=== PATIENT | male | born 1945 | race Caucasian/White ===

== ENCOUNTER 2017-10-05 07:52 | Inpatient (IN) | payer OTHER, MEDICARE ==
[~2017-10-05] VITALS: Ht 170.2 cm; Wt 98.9 kg
[2017-10-05] VITALS (9 sets, daily range): BP systolic 109–135; BP diastolic 58–81; PULSE 55–77; RESP 14–20; TEMP 97–98.2; O2SAT 91–96
[2017-10-05] MEDS ORDERED: ONDANSETRON HCL 4 MG/2 ML VIAL IVP ONE (08:00)
[2017-10-05] MEDS ORDERED: LITH300C2 PO (08:09)
[2017-10-05] MEDS ORDERED: ASPI-516 CHEW (08:09)
[2017-10-05] MEDS ORDERED: TAMS0.4C4 PO (08:09)
[2017-10-05] MEDS ORDERED: METF500T PO (08:09)
[2017-10-05] MEDS ORDERED: PROZ20CA11 PO (08:09)
[2017-10-05] MEDS ORDERED: CARV25TA PO (08:09)
[2017-10-05] MEDS ORDERED: VERA120T3 PO (08:09)
[2017-10-05] MEDS: SODIUM CHLORIDE 0.9% FLUSH 10 ML FLUSH IVF PRN ×2 (08:21→20:51)
--- NOTE | 2017-10-05 09:00 | RADRPT ---
EXAM DATE/TIME: 10/05/2017 08:13 [facility] COMPARISON: No previous studies available for comparison. INDICATIONS : Syncope MEDICAL HISTORY : None. SURGICAL HISTORY : None. ENCOUNTER: Initial ACUITY: 1 day PAIN SCORE: 0/10 LOCATION: Bilateral chest FINDINGS: A single view of the chest demonstrates the lungs to be symmetrically aerated without evidence of mas s, infiltrate or effusion. The cardiomediastinal contours are unremarkable. Osseous structures are intact. CONCLUSION: Normal examination. Alfred Bynum MD on October 05, 2017 at 8:58 Board Certified Radiologist. This report was verified electronically.
--- NOTE | 2017-10-05 09:04 | RADRPT ---
EXAM DATE/TIME: 10/05/2017 08:35 [facility] COMPARISON: No previous studies available for comparison. INDICATIONS : Syncopal episode, dizziness. RADIATION DOSE: 69.15 CTDIvol (mGy) MEDICAL HISTORY : None SURGICAL HISTORY : None. ENCOUNTER: Initial ACUITY: 1 day PAIN SCALE: 1/10 LOCATION: cranial TECHNIQUE: Multiple contiguous axial images were obtained of the head. Using automated exposure control and adj ustment of the mA and/or kV according to patient size, radiation dose was kept as low as reasonably a chievable to obtain optimal diagnostic quality images. DICOM format image data is available electro nically for review and comparison. FINDINGS: CEREBRUM: The ventricles are normal for age. No evidence of midline shift, mass lesion, hemorrhage or acute in farction. No extra-axial fluid collections are seen. POSTERIOR FOSSA: The cerebellum and brainstem are intact. The 4th ventricle is midline. The cerebellopontine angle i s unremarkable. EXTRACRANIAL: The visualized portion of the orbits is intact. SKULL: The calvaria is intact. No evidence of skull fracture. CONCLUSION: Normal examination. Alfred Bynum MD on October 05, 2017 at 9:02 Board Certified Radiologist. This report was verified electronically.
[2017-10-05 09:28] LABS: BASOPHIL # 0.1 TH/MM3 (0-0.2); BASOPHIL % 0.9 % (0.0-2.0); EOSINOPHIL # 0.3 TH/MM3 (0-0.4); EOSINOPHIL % 2.9 % (0.0-4.0); HEMATOCRIT 44.2 % (39.0-51.0); HEMOGLOBIN 15.1 GM/DL (13.0-17.0); LYMPH % 33.6 % (9.0-44.0); LYMPHOCYTE # 3.8 TH/MM3 (1.0-4.8); MEAN CELL VOLUME 93.5 FL (80.0-100.0); MEAN CORPUSCULAR HEMOGLOBIN 31.9 PG (27.0-34.0); MEAN CORPUSCULAR HGB CONC 34.1 % (32.0-36.0); MEAN PLATELET VOLUME 8.2 FL (7.0-11.0); MONO % 10.3 % (0.0-8.0); MONOCYTE # 1.2 TH/MM3 (0-0.9); NEUT % 52.3 % (16.0-70.0); PLATELET COUNT 356 TH/MM3 (150-450); RED BLOOD COUNT 4.73 MIL/MM3 (4.50-5.90); RED CELL DISTRIBUTION WIDTH 13.8 % (11.6-17.2); WHITE BLOOD COUNT 11.4 TH/MM3 (4.0-11.0)
[2017-10-05 09:38] LABS: INTERNATIONAL NORMALIZED RATIO 1.1 RATIO; PROTHROMBIN TIME - PATIENT 10.7 SEC (9.8-11.6)
[2017-10-05 09:47] LABS: ALBUMIN 3.2 GM/DL (3.4-5.0); ALT (GPT) 46 U/L (12-78); AST (GOT) 38 U/L (15-37); BICARBONATE 24.4 MEQ/L (21.0-32.0); BLOOD UREA NITROGEN 19 MG/DL (7-18); CALCIUM 9.5 MG/DL (8.5-10.1); CHLORIDE 106 MEQ/L (98-107); CREATININE 1.51 MG/DL (0.60-1.30); GLOMERULAR FILTRATION RATE 46 ML/MIN (>89); GLUCOSE,RANDOM 218 MG/DL (74-106); MAGNESIUM 2.1 MG/DL (1.5-2.5); SODIUM (NA) 140 MEQ/L (136-145)
[2017-10-05 09:51] LABS: ALKALINE PHOSPHATASE 82 U/L (45-117); TOTAL BILIRUBIN ADULT 0.7 MG/DL (0.2-1.0); TOTAL PROTEIN 7.7 GM/DL (6.4-8.2); TROPONIN I 0.03 NG/ML (0.02-0.05)
--- NOTE | 2017-10-05 10:09 | PD ---
HPI Chief Complaint: Syncope/Near-Syncope Time Seen by Provider: 07:58 Travel History International Travel<30 days: No Contact w/Intl Traveler<30days: No Traveled to known affect area: No History of Present Illness HPI 72-year-old male arrives by EMS. He was reported to have fallen to the ground at about 7 this morning. He was unresponsive in his daughter who is an PROCESS ANALYST initiated CPR. The patient promptly woke up thereafter. EMS arrived on scene to a patient who was awaken alert with one run of bradycardia to the 30s. The patient takes Coreg and Cardizem. He reports this morning he woke up at 4 AM and took his carvedilol. He states he does so in order to eat breakfast. The patient states he actually remembers his daughter performing chest compressions. In the ER he denies chest pain and shortness of breath. No nausea or vomiting. He denies any change in his baseline state of health over the past few days. [facility] Social History Tobacco Use: No Allergies-Medications (Allergen,Severity, Reaction): Coded Allergies: codeine (Verified Allergy, Intermediate, 10/05/17) Reported Meds & Prescriptions Reported Meds & Active Scripts Active Reported Tamsulosin (Tamsulosin HCl) 0.4 Mg Cap 0.4 Mg PO HS Prozac (Fluoxetine HCl) 20 Mg Cap 20 Mg PO DAILY [place] Carbonate 300 Mg Cap 300 Mg PO BID Verapamil (Verapamil HCl) 120 Mg Tab 120 Mg PO DAILY Carvedilol 25 Mg Tab 25 Mg PO DAILY Metformin (Metformin HCl) 500 Mg Tab 500 Mg PO BIDPC Aspirin 81 Mg Chew 81 Mg CHEW DAILY Review of Systems Except as stated in HPI: all other systems reviewed are Neg General / Constitutional: No: Fever Physical Exam Narrative GENERAL: 72-year-old male well-nourished well-developed SKIN: Warm and dry. HEAD: Atraumatic. Normocephalic. EYES: Pupils equal and round. No scleral icterus. No injection or drainage. ENT: No nasal bleeding or discharge. Mucous membranes pink and moist. NECK: Trachea midline. No JVD. CARDIOVASCULAR: Heart rate is about 50-60. The rhythm is regular. RESPIRATORY: No accessory muscle use. Clear to auscultation. Breath sounds equal bilaterally. GASTROINTESTINAL: Soft. No focus of tenderness. No distention. MUSCULOSKELETAL: Extremities without clubbing, cyanosis, or edema. No obvious deformities. NEUROLOGICAL: Awake and alert. No obvious cranial nerve deficits. Motor grossly within normal limits. Five out of 5 muscle strength in the arms and legs. Normal speech. PSYCHIATRIC: Appropriate mood and affect; insight and judgment normal. Data Data Last Documented VS Vital Signs Date Time Temp Pulse Resp B/P (MAP) Pulse Ox O2 Delivery O2 Flow Rate FiO2 10/05/17 08:02 14 95 Nasal Cannula 3.00 10/05/17 07:56 55 116/72 (87) Vital Signs Date Time Temp Pulse Resp B/P (MAP) Pulse Ox O2 Delivery O2 Flow Rate FiO2 10/05/17 08:02 14 95 Nasal Cannula 3.00 10/05/17 07:56 55 14 116/72 (87) 96 Orders Orders Electrocardiogram (10/05/17 07:58) Complete Blood Count With Diff (10/05/17 07:58) Comprehensive Metabolic Panel (10/05/17 07:58) Magnesium (Mg) (10/05/17 07:58) Ckmb (Isoenzyme) Profile (10/05/17 07:58) Troponin I (10/05/17 07:58) Act Partial Throm Time (Ptt) (10/05/17 07:58) Prothrombin Time / Inr (Pt) (10/05/17 07:58) Urinalysis - C+S If Indicated (10/05/17 07:58) Chest, Single Ap (10/05/17 07:58) Ct Brain W/O Iv Contrast(Rout) (10/05/17 07:58) Blood Glucose (10/05/17 07:58) Ecg Monitoring (10/05/17 07:58) Iv Access Insert/Monitor (10/05/17 07:58) Oximetry (10/05/17 07:58) Ondansetron Inj (Zofran Inj) (10/05/17 08:00) Sodium Chloride 0.9% Flush (Ns Flush) (10/05/17 08:00) CKMB (10/05/17 08:00) CKMB% (10/05/17 08:00) Vital Signs (Adult) RHETT.Q4H (10/05/17 10:23) Blood Glucose Goal (Criteria) (10/05/17 10:23) Hypoglycemia 70 Mg/Dl Or < (10/05/17 10:23) Notify Dr: Other (10/05/17 10:23) Dextrose 50% In [place] (Vial) Inj (D50w (Vi (10/05/17 10:30) Glucagon Inj (Glucagon Inj) (10/05/17 10:30) Insulin Aspart Supplemtl Scale (Novolog (10/05/17 12:00) Spinning Machine Tender / Telemetry RHETT.Q8H (10/05/17 10:23) Orthostatic Blood Pressure (10/05/17 10:23) Basic Metabolic Panel (Bmp) (10/06/17 06:00) Admit Order (Ed Use Only) (10/05/17 ) Spinning Machine Tender / Telemetry RHETT.Q8H (10/05/17 10:26) Vital Signs (Adult) Q4H (10/05/17 10:26) Diet Npo (10/05/17 Lunch) Activity Bed Rest (10/05/17 10:26) Labs Laboratory Tests Test 10/05/17 08:00 White Blood Count 11.4 TH/MM3 Red Blood Count 4.73 MIL/MM3 Hemoglobin 15.1 GM/DL Hematocrit 44.2 % Mean Corpuscular Volume 93.5 FL Mean Corpuscular Hemoglobin 31.9 PG Mean Corpuscular Hemoglobin Concent 34.1 % Red Cell Distribution Width 13.8 % Platelet Count 356 TH/MM3 Mean Platelet Volume 8.2 FL Neutrophils (%) (Auto) 52.3 % Lymphocytes (%) (Auto) 33.6 % Monocytes (%) (Auto) 10.3 % Eosinophils (%) (Auto) 2.9 % Basophils (%) (Auto) 0.9 % Neutrophils # (Auto) 6.0 TH/MM3 Lymphocytes # (Auto) 3.8 TH/MM3 Monocytes # (Auto) 1.2 TH/MM3 Eosinophils # (Auto) 0.3 TH/MM3 Basophils # (Auto) 0.1 TH/MM3 CBC Comment DIFF FINAL Differential Comment Prothrombin Time 10.7 SEC Prothromb Time International Ratio 1.1 RATIO Activated Partial Thromboplast Time 25.2 SEC Blood Urea Nitrogen 19 MG/DL Creatinine 1.51 MG/DL Random Glucose 218 MG/DL Total Protein 7.7 GM/DL Albumin 3.2 GM/DL Calcium Level 9.5 MG/DL Magnesium Level 2.1 MG/DL Alkaline Phosphatase 82 U/L Aspartate Amino Transf (AST/SGOT) 38 U/L Alanine Aminotransferase (ALT/SGPT) 46 U/L Total Bilirubin 0.7 MG/DL Sodium Level 140 MEQ/L Potassium Level 4.1 MEQ/L Chloride Level 106 MEQ/L Carbon Dioxide Level 24.4 MEQ/L Anion Gap 10 MEQ/L Estimat Glomerular Filtration Rate 46 ML/MIN Total Creatine Kinase 112 U/L Creatine Kinase MB 0.8 NG/ML Troponin I 0.03 NG/ML MDM Medical Decision Making Medical Screen Exam Complete: Yes Emergency Medical Condition: Yes Differential Diagnosis CBC & BMP Diagram 10/05/17 08:00 Total Protein 7.7, Albumin 3.2 L, Calcium Level 9.5, Magnesium Level 2.1, Alkaline Phosphatase 82, Aspartate Amino Transf (AST/SGOT) 38 H, Alanine Aminotransferase (ALT/SGPT) 46, Total Bilirubin 0.7 Tn 0.03 Albumin 3.2 EKG: sinus, rate 57,LBBB pattern (old) Last Impressions Head CT 10/05/17 075 Signed Impressions: Service Date/Time: September 08:35 - CONCLUSION: Normal examination. Alfred Bynum MD Chest X-Ray 10/05/17 0758 Signed Impressions: Service Date/Time: September 08:13 - CONCLUSION: Normal examination. Alfred Bynum MD Patient had a syncope episode apparently with unconsciousness for long enough for his daughter who is an PROCESS ANALYST to do CPR. EMS reports on scene the heart rate was in the 30s. He has normalized here and at the time of reassessment just prior to admission, 11:05 AM the patient reports feeling "fine." Heart rate is about 80 and the blood pressure was 140/70. There is concern that potentially the Coreg with or without the diltiazem is causing the bradycardia. Case d/w Dr Brown Narrative Course Please see above DDX includes pharmacy, metabolic disarray, anemia, intracranial hemorrhage Diagnosis Primary Impression: Syncope and collapse Additional Impression: Bradycardia Admitting Information Admitting Physician Requests: Observation Urbano Hickey MD Oct 05, 2017 10:09
[2017-10-05] MEDS ORDERED: DEXTROSE 50% IN WATER 50 ML VIAL(D50) IV PUSH PRN (10:30)
[2017-10-05] MEDS ORDERED: GLUCAGON 1 MG/ML VIAL OTHER PRN (10:30)
[2017-10-05 11:44] LABS: BACTERIA, URINE FEW /hpf; BLOOD, URINE SMALL (NEG); CALCIUM OXALATE CRYSTALS,URINE OCC /hpf; GLUCOSE,URINE TRACE mg/dL (NEG); HYALINE CAST, URINE 32 /lpf (RARE); KETONE, URINE NEG (NEG); MUCUS URINE MANY /lpf (OCC); NITRITE,URINE NEG (NEG); PH, URINE 5.5 (5.0-8.5); SQUAMOUS EPITHELIAL CELL URINE <1 /hpf (0-5); URINE COLOR YELLOW (YELLW/STRAW); URINE LEUKOCYTE ESTERASE SMALL (NEG)
[2017-10-05 11:47] LABS: BILIRUBIN, URINE NEG (NEG)
[2017-10-05] MEDS: INSULIN ASPART SUPPLEMENTAL SCALE SQ SCH ×3 (12:20→20:53)
--- NOTE | 2017-10-05 13:11 | HHI.HP ---
[facility] Service [facility] Primary Care Physician Ricco Garza MD Admission Diagnosis Syncope; Bradycardia; Fall Diagnoses: (1) Syncope Diagnosis: Principal Chief Complaint: lightheadedness Travel History International Travel<30 Days: No Contact w/Intl Traveler <30 Da: No Traveled to Known Affected Are: No History of Present Illness patient is a 72 y/o male with history of hypertension, diabetes, BPH,asthma who was brought to ER after he passed out at home earlier today. he says that he felt lightheaded before he passed out. he denies any chest pain, sob, nausea or emesis before the incident. there's no report of tongue-biting, focal weakness, headache or urinary incontinence. per the ER , his pulse was reported @ 30's at the time. he's on Verapamil and Coreg for hypertension. at the time of my evaluation he was resting comfortably with no acute distress, with no reported pain. Review of Systems Constitutional: DENIES: Fever, Weight loss, Chills, Night Sweats Eyes: DENIES: Blurred vision, Diplopia, Vision loss, Double Vision Ears, nose, mouth, throat: DENIES: Tinnitus, Vertigo, Throat pain, Epistaxis Respiratory: DENIES: Apneas, Cough, Snoring, Wheezing, Hemoptysis, Sputum production, Shortness of breath Cardiovascular: DENIES: Chest pain, Palpitations, Syncope, Dyspnea on Exertion , PND, Lower Extremity Edema, Orthopnea, Claudication Gastrointestinal: DENIES: Abdominal pain, Black stools, Bloody stools, Constipation, Diarrhea, Nausea, Vomiting, Difficulty Swallowing, Anorexia Genitourinary: DENIES: Urinary frequency, Urgency, Hematuria, Dysuria Musculoskeletal: DENIES: Joint pain, Muscle aches, Stiffness, Joint Swelling Integumentary: DENIES: Rash Neurologic: DENIES: Abnormal gait, Headache, Localized weakness, Paresthesias, Seizures, Speech Problems, Tremor, Poor Balance Psychiatric: DENIES: Anxiety, Confusion, Mood changes, Depression, Hallucinations, Agitation, Suicidal Ideation, Homicidal Ideation, Delusions Past Family Social History Past Medical History hypertension diabetes mellitus asthma BPH Past Surgical History hand surgery. Reported Medications Tamsulosin (Tamsulosin HCl) 0.4 Mg Cap 0.4 Mg PO HS Prozac (Fluoxetine HCl) 20 Mg Cap 20 Mg PO DAILY [place] Carbonate 300 Mg Cap 300 Mg PO BID Verapamil (Verapamil HCl) 120 Mg Tab 120 Mg PO DAILY Carvedilol 25 Mg Tab 25 Mg PO DAILY Metformin (Metformin HCl) 500 Mg Tab 500 Mg PO BIDPC Aspirin 81 Mg Chew 81 Mg CHEW DAILY Allergies: Coded Allergies: codeine (Verified Allergy, Intermediate, 10/05/17) Active Ordered Medications Inpatient Medications Dextrose (D50w (Vial) Inj) 50 ml UNSCH PRN IV PUSH HYPOGLYCEMIA-SEE COMMENTS; Start 10/05/17 at 10:30 Glucagon (Glucagon Inj) 1 mg UNSCH PRN OTHER HYPOGLYCEMIA-SEE COMMENTS; Start 10/05/17 at 10:30 Insulin Aspart (NovoLOG SUPPLEMENTAL SCALE) 1 ACHS SLIDING SCALE SQ ; Start at 12:00 Ondansetron HCl (Zofran Inj) 4 mg ONCE ONCE IVP Last administered on at 08:21; Start 10/05/17 at 08:00; Stop 10/05/17 at 08:02; Status DC Sodium Chloride (NS Flush) 2 ml UNSCH PRN IVF FLUSH AFTER USING IV ACCESS Last administered on 10/05/17at 08:21; Start 10/05/17 at 08:00 Family History not significant. Social History quit smoking many years ago- doesn't drink. Physical Exam Vital Signs Vital Signs Date Time Temp Pulse Resp B/P (MAP) Pulse Ox O2 Delivery O2 Flow Rate FiO2 10/05/17 11:05 97.6 10/05/17 08:02 14 95 Nasal Cannula 3.00 10/05/17 07:56 55 14 116/72 (87) 96 Physical Exam GENERAL: This is a well-nourished, well-developed patient, in no apparent distress. SKIN: No rashes, ecchymoses or lesions. Cool and dry. HEAD: Atraumatic. Normocephalic. No temporal or scalp tenderness. EYES: Pupils equal round and reactive. Extraocular motions intact. No scleral icterus. No injection or drainage. ENT: Nose without bleeding, purulent drainage or septal hematoma. Throat without erythema, tonsillar hypertrophy or exudate. Uvula midline. Airway patent. NECK: Trachea midline. No JVD or lymphadenopathy. Supple, nontender, no meningeal signs. CARDIOVASCULAR: Regular rate and rhythm without murmurs, gallops, or rubs. RESPIRATORY: Clear to auscultation. Breath sounds equal bilaterally. No wheezes , rales, or rhonchi. GASTROINTESTINAL: Abdomen soft, non-tender, nondistended. No hepato-splenomegaly , or palpable masses. No guarding. MUSCULOSKELETAL: Extremities without clubbing, cyanosis, or edema. No joint tenderness, effusion, or edema noted. No calf tenderness. Negative Homans sign bilaterally. NEUROLOGICAL: Awake and alert. Cranial nerves II through XII intact. Motor and sensory grossly within normal limits. Five out of 5 muscle strength in all muscle groups. Normal speech. Laboratory Laboratory Tests Test 10/05/17 08:00 10/05/17 11:20 White Blood Count 11.4 Red Blood Count 4.73 Hemoglobin 15.1 Hematocrit 44.2 Mean Corpuscular Volume 93.5 Mean Corpuscular Hemoglobin 31.9 Mean Corpuscular Hemoglobin Concent 34.1 Red Cell Distribution Width 13.8 Platelet Count 356 Mean Platelet Volume 8.2 Neutrophils (%) (Auto) 52.3 Lymphocytes (%) (Auto) 33.6 Monocytes (%) (Auto) 10.3 Eosinophils (%) (Auto) 2.9 Basophils (%) (Auto) 0.9 Neutrophils # (Auto) 6.0 Lymphocytes # (Auto) 3.8 Monocytes # (Auto) 1.2 Eosinophils # (Auto) 0.3 Basophils # (Auto) 0.1 CBC Comment DIFF FINAL Differential Comment Prothrombin Time 10.7 Prothromb Time International Ratio 1.1 Activated Partial Thromboplast Time 25.2 Blood Urea Nitrogen 19 Creatinine 1.51 Random Glucose 218 Total Protein 7.7 Albumin 3.2 Calcium Level 9.5 Magnesium Level 2.1 Alkaline Phosphatase 82 Aspartate Amino Transf (AST/SGOT) 38 Alanine Aminotransferase (ALT/SGPT) 46 Total Bilirubin 0.7 Sodium Level 140 Potassium Level 4.1 Chloride Level 106 Carbon Dioxide Level 24.4 Anion Gap 10 Estimat Glomerular Filtration Rate 46 Total Creatine Kinase 112 Creatine Kinase MB 0.8 Troponin I 0.03 Urine Color YELLOW Urine Turbidity HAZY Urine pH 5.5 Urine Specific [place] 1.034 Urine Protein 100 Urine Glucose (UA) TRACE Urine Ketones NEG Urine Occult Blood SMALL Urine Nitrite NEG Urine Bilirubin NEG Urine Urobilinogen 2.0 Urine Leukocyte Esterase SMALL Urine RBC 13 Urine WBC 14 Urine Squamous Epithelial Cells <1 Urine Calcium Oxalate Crystals OCC Urine Bacteria FEW Urine Hyaline Casts 32 Urine Mucus MANY Microscopic Urinalysis Comment CULTURE INDICATED Date/Time Source Procedure Growth Status 10/05/17 11:20 Urine Clean Catch Urine Culture Pending Received Result Diagram: 10/05/17 0800 10/05/17 0800 Imaging Last Impressions Head CT 10/05/17757 Signed Impressions: Service Date/Time: September 08:35 - CONCLUSION: Normal examination. Alfred Bynum MD Chest X-Ray 10/05/17757 Signed Impressions: Service Date/Time: September 08:13 - CONCLUSION: Normal examination. Alfred Bynum MD EKG; sinus bradycardia with LBBB( old) Capadrian VTE Risk Assessment Caprini VTE Risk Assessment: Mod/High Risk (score >= 2) Caprini Risk Assessment Model Point Value = 1 Point Value = 2 Point Value = 3 Point Value = 5 Age 41-60 Minor surgery BMI > 25 kg/m2 Swollen legs Varicose veins or History of unexplained or recurrent spontaneous Oral contraceptives or hormone replacement Sepsis (< 1 month) Serious lung disease, including pneumonia (< 1 month) Abnormal pulmonary function Acute myocardial infarction Congestive heart failure (< 1 month) History of inflammatory bowel disease Medical patient at bed rest Age 61-74 Arthroscopic surgery Major open surgery (> 45 min) Laparoscopic surgery (> 45 min) Malignancy Confined to bed (> 72 hours) Immobilizing plaster cast Central venous access Age >= 75 History of VTE Family history of VTE Factor V Leiden Prothrombin [id number] Lupus anticoagulant Anticardiolipin antibodies Elevated serum homocysteine Heparin-induced thrombocytopenia Other congenital or acquired thrombophilia Stroke (< 1 month) Elective arthroplasty Hip, pelvis, or leg fracture Acute spinal cord injury (< 1 month) Prophylaxis Regimen Total Risk Factor Score Risk Level Prophylaxis Regimen 0-1 Low Early ambulation 2 Moderate Order ONE of the following: *Sequential Compression Device (SCD) *Heparin 5000 units SQ BID 3-4 Higher Order ONE of the following medications: *Heparin 5000 units SQ TID *Enoxaparin/Lovenox 40 mg SQ daily (WT < 150 kg, CrCl > 30 mL/min) *Enoxaparin/Lovenox 30 mg SQ daily (WT < 150 kg, CrCl > 10-29 mL/min) *Enoxaparin/Lovenox 30 mg SQ BID (WT < 150 kg, CrCl > 30 mL/min) AND/OR *Sequential Compression Device (SCD) 5 or more Highest Order ONE of the following medications: *Heparin 5000 units SQ TID (Preferred with Epidurals) *Enoxaparin/Lovenox 40 mg SQ daily (WT < 150 kg, CrCl > 30 mL/min) *Enoxaparin/Lovenox 30 mg SQ daily (WT < 150 kg, CrCl > 10-29 mL/min) *Enoxaparin/Lovenox 30 mg SQ BID (WT < 150 kg, CrCl > 30 mL/min) AND *Sequential Compression Device (SCD) Assessment and Plan Assessment and Plan A/P - syncope with reported bradycardia continue to monitor on telemetry- hold Verapamil and Coreg- check echo and carotid doppler. -hypertension- check orthostatic BP- hold home meds as noted above- vasotec prn. -diabetes mellitus; accu-check with SSI -chronic renal insufficiency; seems to be at his baseline- will monitor -DVT prophylaxis with subq Lovenox -consult PT. Discussed Condition With patient and his daughter. ER physician. Problem Qualifiers (1) Syncope: Qualified Codes: R55 - Syncope and collapse Breanna Brown MD Oct 05, 2017 13:11
[2017-10-05] MEDS ORDERED: SODIUM CHLORID 0.9% 500 ML INJ 500 ML IV ONE (14:00)
--- NOTE | 2017-10-05 15:12 | RADRPT ---
EXAM DATE/TIME: 10/05/2017 14:36 [facility] COMPARISON: No previous studies available for comparison. INDICATIONS : Syncope. MEDICAL HISTORY : Benign prostatic hyperplasia, (BPH) Hypertension. Dilopia. Blurred vision. Tinnitis. Diabetes. SURGICAL HISTORY : None. ENCOUNTER: Initial ACUITY: 1 day PAIN SCORE: 0/10 LOCATION: Bilateral neck PEAK SYSTOLIC VELOCITIES (cm/sec): ICA/CCA RATIO: Right: 0.9 Left: 0.9 ICA: Right: 73.6 Left: 68.3 CCA: Right: 84.0 Left: 74.9 ECA: Right: 89.2 Left: 45.3 VERTEBRAL: Right: 43.5 antegrade Left: 56.3 antegrade Elevated flow velocities and ICA/CCA ratios have been found to correlate with increased degrees of vessel stenosis, calculated as percentage of diameter relative to a normal segment of distal ICA/CCA FINDINGS: RIGHT CAROTID: There is moderate calcified and noncalcified plaque within the mid common carotid artery and in the c arotid bulb and proximal internal cord artery. The waveforms are within normal limits. LEFT CAROTID: There is a mild to moderate calcified and noncalcified plaque in the mid to distal common carotid art crys and carotid bulb. The waveforms are within normal limits. VERTEBRAL ARTERIES: Antegrade flow is seen in both vertebral arteries. MISCELLANEOUS: None. CONCLUSION: 1. Mild to moderate atherosclerotic disease within the common carotid arteries and internal carotid a rteries bilaterally. However, velocity measurements indicate less than 50% stenosis. 2. There is antegrade flow within both vertebral arteries. Ricco Gee MD on October 05, 2017 at 15:00 Board Certified Radiologist. This report was verified electronically.
[2017-10-05] MEDS: LITHIUM CARBONATE 300 MG CAP PO SCH (21:00)
[2017-10-05] MEDS ORDERED: TAMSULOSIN HCL 0.4 MG CAP PO SCH (21:00)
--- NOTE | 2017-10-05 21:53 | EKG ---
Date Performed: 10/05/2017 Time Performed: 07:56:48 PTAGE: 72 years EKG: SINUS BRADYCARDIA WITH FIRST DEGREE AV BLOCK MARKED LEFT AXIS DEVIATION LEFT BUNDLE BRANCH BLOCK ABNORMAL ECG NO PREVIOUS TRACING DOCTOR: Anthony Back Interpretating Date/Time 10/05/2017 21:52:03
[2017-10-06] VITALS (8 sets, daily range): BP systolic 115–157; BP diastolic 66–77; PULSE 68–92; RESP 18–20; TEMP 97.5–97.8; O2SAT 90–93
--- NOTE | 2017-10-06 08:58 | HHI.PR ---
Subjective Remarks in no acute distress. no chest pain or sob. no dizziness today. Objective Vitals Vital Signs Date Time Temp Pulse Resp B/P (MAP) Pulse Ox O2 Delivery O2 Flow Rate FiO2 10/06/17 04:12 97.5 76 18 115/77 (90) 91 10/06/17 04:00 88 10/06/17 00:00 71 10/05/17 23:42 97.8 71 18 109/58 (75) 91 10/05/17 22:22 97.0 77 18 135/78 (97) 92 10/05/17 21:22 97.6 76 18 127/80 (96) 92 10/05/17 20:22 97.1 76 18 131/69 (89) 91 10/05/17 19:22 98.2 74 18 133/81 (98) 92 10/05/17 17:00 97.8 70 20 133/69 (90) 94 10/05/17 11:05 97.6 I/O 10/05/17 10/05/17 10/05/17 10/06/17 10/06/17 10/06/17 07:00 15:00 23:00 07:00 15:00 23:00 Intake Total 0 ml Output Total 0 ml Balance 0 ml Intake Oral 0 ml Output Urine Total 0 ml # Voids 3 # Bowel Movements 1 Result Diagram: 10/05/17 0800 10/05/17 0800 Imaging Last Impressions Head CT 10/05/17 0758 Signed Impressions: Service Date/Time: September 08:35 - CONCLUSION: Normal examination. Alfred Bynum MD Chest X-Ray 10/05/17 0758 Signed Impressions: Service Date/Time: September 08:13 - CONCLUSION: Normal examination. Alfred Bynum MD Carotid Artery Ultrasound 10/05/17 0000 Signed Impressions: Service Date/Time: September 14:36 - CONCLUSION: 1. Mild to moderate atherosclerotic disease within the common carotid arteries and internal carotid arteries bilaterally. However, velocity measurements indicate less than 50%% stenosis. 2. There is antegrade flow within both vertebral arteries. Ricco Gee MD Objective Remarks GENERAL: This is a well-nourished, well-developed patient, in no apparent distress. CARDIOVASCULAR: Regular rate and regular rhythm without murmurs, gallops, or rubs. RESPIRATORY: Clear to auscultation. Breath sounds equal bilaterally. No wheezes , rales, or rhonchi. GASTROINTESTINAL: Abdomen soft, non-tender, nondistended. Normal, active bowel sounds MUSCULOSKELETAL: Extremities without clubbing, cyanosis, or edema. NEURO: Alert & Oriented x4 to person, place, time, situation. Moves all ext x4 Medications and IVs Inpatient Medications Aspirin (Aspirin Chew) 81 mg DAILY CHEW ; Start 10/06/17 at 09:00 Dextrose (D50w (Vial) Inj) 50 ml UNSCH PRN IV PUSH HYPOGLYCEMIA-SEE COMMENTS; Start 10/05/17 at 10:30 Fluoxetine HCl (PROzac) 20 mg DAILY PO ; Start 10/06/17 at 09:00 Glucagon (Glucagon Inj) 1 mg UNSCH PRN OTHER HYPOGLYCEMIA-SEE COMMENTS; Start 10/05/17 at 10:30 Insulin Aspart (NovoLOG SUPPLEMENTAL SCALE) 1 ACHS SLIDING SCALE SQ Last administered on 10/05/17at 17:00; Start 10/05/17 at 12:00 [place] Carbonate ([place] Carbonate) 300 mg BID PO ; Start 10/05/17 at 21:00 Ondansetron HCl (Zofran Inj) 4 mg ONCE ONCE IVP Last administered on at 08:21; Start 10/05/17 at 08:00; Stop 10/05/17 at 08:02; Status DC Pneumococcal Polyvalent Vaccine (Pneumovax-23 Inj) 25 mcg ONCE ONCE IM ; Start 10/06/17 at 10:00; Stop 10/06/17 at 10:01 Sodium Chloride 500 ml @ 50 mls/hr Q10H ONCE IV Last administered on at 14:00; Start 10/05/17 at 14:00; Stop 10/05/17 at 23:59; Status DC Sodium Chloride (NS Flush) 2 ml UNSCH PRN IVF FLUSH AFTER USING IV ACCESS Last administered on 10/05/17at 20:51; Start 10/05/17 at 08:00 Tamsulosin HCl (Flomax) 0.4 mg HS PO Last administered on 10/05/17at 20:51; Start 10/05/17 at 21:00 A/P Problem List: (1) Syncope ICD Code: R55 - Syncope and collapse Assessment and Plan - syncope with reported bradycardia CT head with no acute abnormality- carotid doppler with less than 50% stenosis - echo is pending. remained on sinus rhythm on telemetry-- hold Verapamil - start on coreg at a lower dose upon discharge. -hypertension- check orthostatic BP- hold home meds as noted above- vasotec prn. -diabetes mellitus; accu-check with SSI -chronic renal insufficiency; seems to be at his baseline- will monitor -DVT prophylaxis with subq Lovenox -PT consulted. Discharge Planning dc home later today when echo is done. Problem Qualifiers (1) Syncope: Qualified Codes: R55 - Syncope and collapse Breanna Brown MD Oct 06, 2017 08:58
[2017-10-06] MEDS ORDERED: FLUoxetine HCL 20 MG CAP PO SCH (09:00)
[2017-10-06] MEDS ORDERED: ASPIRIN 81 MG CHEW TAB CHEW SCH (09:00)
[2017-10-06] MEDS ORDERED: CARV3.125 PO (09:01)
[2017-10-06] MEDS ORDERED: PNEUMOCOCCAL POLYVALENT INJ 25 MCG/0.5 ML SYR IM ONE (10:00)
[2017-10-06 10:06] LABS: BICARBONATE 26.2 MEQ/L (21.0-32.0); CALCIUM 9.5 MG/DL (8.5-10.1); CREATININE 1.47 MG/DL (0.60-1.30)
[2017-10-06] MEDS: LITHIUM CARBONATE 300 MG CAP PO SCH (10:30)
[2017-10-06] MEDS: INSULIN ASPART SUPPLEMENTAL SCALE SQ SCH (11:28)
--- NOTE | 2017-10-06 16:46 | HHI.PR ---
Addendum To [facility] Progress Not Reason for addendum: Additonal documentation (the patient wants to go home and have a f/u on his echo as outpatient. patient will be discharged home with f/u by his pcp.) Breanna Brown MD Oct 06, 2017 16:46
--- NOTE | 2017-10-06 19:54 | ECHRPT ---
Indication: SOB CONCLUSIONS Normal left ventricular size. Mild concentric left ventricular hypertrophy. The left ventricular systolic function is normal with an estimated ejection fraction in the range of 55-60%. No definite regional wall motion abnormalities. Trace aortic valve regurgitation. BP: 116 / 72 HR: 55 Rhythm: Other MEASUREMENTS (Male / Female) Normal Values Technical Quality:Good 2D ECHO LV Diastolic Diameter PLAX 4.8 cm 4.2 - 5.9 / 3.9 - 5.3 cm LV Systolic Diameter PLAX 3.9 cm IVS Diastolic Thickness 1.4 cm 0.6 - 1.0 / 0.6 - 0.9 cm LVPW Diastolic Thickness 1.1 cm 0.6 - 1.0 / 0.6 - 0.9 cm LV Relative Wall Thickness 0.5 LA Systolic Diameter LX 4.1 cm 3.0 - 4.0 / 2.7 - 3.8 cm DOPPLER Mitral E Point Velocity 85.9 cm/s Mitral A Point Velocity 117.0 cm/s Mitral E to A Ratio 0.7 TR Peak Velocity 233.0 cm/s TR Peak Gradient 21.7 mmHg Right Atrial Pressure 10.0 mmHg Pulmonary Artery Systolic Pressu 31.7 mmHg Right Ventricular Systolic Press 31.7 mmHg FINDINGS LEFT VENTRICLE Normal left ventricular size. Mild concentric left ventricular hypertrophy. The left ventricular systolic function is normal with an estimated ejection fraction in the range of 55-60%. No definite regional wall motion abnormalities. RIGHT VENTRICLE Normal right ventricular size and systolic function. LEFT ATRIUM The left atrial size is normal. RIGHT ATRIUM The right atrial size is normal. ATRIAL SEPTUM Normal atrial septal thickness without atrial level shunting by limited color doppler interrogation. AORTA The aortic root and proximal ascending aorta are normal in size on limited imaging. MITRAL VALVE Structurally normal mitral valve. No mitral valve stenosis or regurgitation. AORTIC VALVE Trace aortic valve regurgitation. TRICUSPID VALVE Structurally normal tricuspid valve. No tricuspid valve stenosis or regurgitation. PULMONARY VALVE No pulmonary valve regurgitation or stenosis. VESSELS The inferior vena cava is normal in size. PERICARDIUM No pericardial effusion. Vipul Haskins MD (Electronically Signed) Final Date:06 October 2017 19:53
== END 2017-10-06 18:08 | disposition home or self-care (01) | DRG 312 ==
LOC: NEPC 07:52 → NEDA 10:31 → N04B 16:55
PROVIDERS: ADMIT Internal Medicine; ATTEND Internal Medicine
DX: R55 Syncope and collapse (principal); E11.22 Type 2 diabetes mellitus with diabetic chronic kidney disease; R00.1 Bradycardia, unspecified; N40.0 Benign prostatic hyperplasia without lower urinary tract symptoms; J45.909 Unspecified asthma, uncomplicated; Z23 Encounter for immunization; I12.9 Hypertensive chronic kidney disease with stage 1 through stage 4 chronic kidney disease, or unspecified chronic kidney disease; N18.9 Chronic kidney disease, unspecified; Z79.84 Long term (current) use of oral hypoglycemic drugs
CPT/HCPCS: 70450; 71045; 80048; 80053; 81001; 82550; 82552; 83735; 84484; 85025; 85610; 85730; 87086; 90732; 93005; 93306; 93880; 96374; J1815; J2405; J7040